=== PATIENT | female | born 1990 | race Two or more races ===

== ENCOUNTER 2017-08-30 05:58 | Emergency (ER) | payer OTHER ==
[2017-08-30] MEDS ORDERED: FAMOTIDINE 20 MG TABLET PO STA (06:06)
[2017-08-30] MEDS ORDERED: predniSONE 20 MG TABLET PO STA (06:06)
[2017-08-30] MEDS ORDERED: diphenhydrAMINE 25 MG CAPSULE PO STA (06:06)
--- NOTE | 2017-08-30 06:10 | ED Physician Documentation ---
PD HPI SKIN - Stated complaint Stated Complaint: R EYE SWELLING/RASH - History obtained from History obtained from: Patient - History of Present Illness Timing - onset: Yesterday Timing - details: Gradual onset, Still present Location: Face Quality / character: Itchy, Discolored Improved by: Benadryl Similar symptoms before: Work up / diagnostics, Treatment Recently seen: Clinic - Additional information Additional information: Patient is a 27 year old female with a history of recurrent allergic reactions who is presenting to the emergency department for facial swelling. patient states that she has had hives over the past couple of days. She felt a hive developing on her nose yesterday and when she woke up today her face was swollen. Patient doctor told her to come to the ED if her face swelled up. Patient does not know the culprit causing her reaction Review of Systems Ten Systems: 10 systems reviewed and negative Throat: denies: Sore throat Respiratory: denies: Dyspnea, Cough, Wheezing GI: denies: Nausea, Vomiting Skin: reports: Rash PD PAST MEDICAL HISTORY - Present Medications Home Medications: Ambulatory Orders Medication Instructions Recorded Confirmed Famotidine [Pepcid] 40 mg PO BID #10 tablet 08/30/17 predniSONE [Prednisone] 40 mg PO DAILY 5 Days tablet 08/30/17 - Allergies Allergies/Adverse Reactions: Allergies Allergy/AdvReac Type Severity Reaction Status Date / Time hydromorphone [From Dilaudid] Allergy Intermediate Anaphylaxis Verified 06:04 sulfamethoxazole Allergy Intermediate Hives Verified 08/30/17 06:04 [From Septra] trimethoprim [From Septra] Allergy Intermediate Hives Verified 08/30/17 06:04 PD ED PE NORMAL - Vitals Vital signs reviewed: Yes - General General: Alert and oriented X 3, No acute distress - HEENT HEENT: Atraumatic - Cardiac Cardiac: RRR - Respiratory Respiratory: No respiratory distress - Abdomen Abdomen: Non distended - Extremities Extremities: No deformity - Neuro Neuro: Alert and oriented X 3 Eye Opening: Spontaneous PD ED PE EXPANDED - HEENT HEENT: Other (no soft palate swelling ) - Eyes Eyes: PERRL, Normal accommodation, EOMI, Eyelid swelling (right eye) - Respiratory Respiratory: No: Wheezing - Derm Derm: Rash, Urticaria (involving bridge of the nose and into soft tissue around right eye) Results - Vitals Vitals: Vital Signs - 24 hr 08/30/17 06:04 Temperature 36.6 C Heart Rate 70 Respiratory 18 Rate Blood Pressure 129/84 H O2 Saturation 99 Oxygen O2 Source Room air PD MEDICAL DECISION MAKING - ED course Complexity details: reviewed old records, re-evaluated patient, considered differential, d/w patient, d/w family ED course: patient was seen and examined at bedside. Patient had some mild facial swelling but no airway involvement. patient was treated with benadryl, pepcid and prednisone. Patient required no further inpatient work up and was stable for discharge with outpatient follow up. Departure - Departure Disposition: Home, Self Care Clinical Impression: Allergic reaction Condition: Good Instructions: ED Allergic Reaction General Other Follow-Up: Van Rodríguez ARNP [Primary Care Provider] - Within 3 Days Prescriptions: Famotidine [Pepcid] 40 mg PO BID #10 tablet predniSONE [Prednisone] 40 mg PO DAILY 5 Days tablet Comments: Your symptoms today are being caused by an allergic reaction. You have been prescribed steroids since it is now affecting your face. You can continue with the benadryl and pepcid for the next few days as well. You can apply ice to the affected area. You should return to the emergency department for wheezing, shortness of breath, lips/tongue/throat swelling. Forms: Activity restrictions
[2017-08-30 06:11] VITALS: BP 129/84
== END 2017-08-30 06:19 | disposition home or self-care (01) ==
LOC: ED 05:58
DX: T78.40XA Allergy, unspecified, initial encounter (principal); X58.XXXA Exposure to other specified factors, initial encounter; L50.0 Allergic urticaria; R22.0 Localized swelling, mass and lump, head
CPT/HCPCS: 99283; A9270; J7512